=== PATIENT | female | born 1970 | race African-American/Black ===

== ENCOUNTER 2018-07-23 13:01 | Emergency (ER) | payer MEDICAID ==
[~2018-07-23] VITALS: Ht 162.6 cm; Wt 61.2 kg
[~2018-07-23 13:01] MED LIST: ATIVAN2 MG PO; CIPROFLOXACIN500 MG PO; COLACE100 MG PO; FLA500 PO; FLEXERIL10 MG PO; HCTZ/LISINOPRIL1 TA1 PO; HYDROCHLOROTH12.5 M2 PO; NAPROSYN500 MG PO; PRI20 PO; SIMVASTATIN40 M1 PO; TYLENOL WITH CO1 TA2 PO; VENTOLIN H0.09 MG/A1 INH; VITAMIN-D1000 IU PO
[2018-07-23 13:12] VITALS: Ht 162.6 cm; Wt 61.2 kg
[2018-07-23 14:45] LABS: PLATELET COUNT 236 x10^3mcL (130-400); RED CELL DISTRIBUTION WIDTH 14.6 % (11.5-14.5)
[2018-07-23 14:48] LABS: CALCIUM 9.3 mg/dL (8.5-10.1); CARBON DIOXIDE 28.1 mmol/L (21-32); CHLORIDE SERUM 97 mmol/L (98-107); CREATININE SERUM 0.9 mg/dL (0.6-1.0); GFR1 > 60 mL/min; GLUCOSE SERUM 119 mg/dL (74-106); POTASSIUM SERUM 4.2 mmol/L (3.5-5.1); SODIUM SERUM 133 mmol/L (136-145)
[2018-07-23 15:00] LABS: ALBUMIN 3.5 g/dL (3.4-5.0); ALKALINE PHOSPHATASE 199 U/L (46-116); ALT/SGPT 97 U/L (14-59); AST/SGOT 74 U/L (15-37); LIPASE 75 IU/L (73-393); MAGNESIUM 2.5 mg/dL (1.8-2.4); TOTAL PROTEIN, SERUM 8.2 g/dL (6.4-8.2); URIC ACID 5.9 mg/dL (2.6-6.0)
[2018-07-23 15:25] LABS: microscopic required? NO
[2018-07-23 15:27] LABS: BAND NEUTROPHIL 2 % (0-10); METAMYELOCTE 1 % (0-2); MONOCYTE 3 % (0-7); SEGMENTED NEUTROPHILS 79 % (37-75)
[2018-07-23 15:29] LABS: PLATELET MORPHOLOGY PLATELETS NORMAL; rbc morphology (normal/abnorm) NORMAL (NORMAL)
[2018-07-23 15:40] LABS: CHOLESTEROL 298 mg/dL (<200); HDL CHOLESTEROL 214 mg/dL (40-60)
[2018-07-23 15:42] LABS: urine erythrocyte NEGATIVE (NEGATIVE)
[2018-07-23 15:56] LABS: AMPHETAMINE QUAL UR NONE DETECTED (See below)
[2018-07-23 18:28] VITALS: BP 114/84
== END 2018-07-23 18:28 | disposition home or self-care (01) ==
LOC: ED 13:01
PROVIDERS: Emergency Medicine
DX: I10 Essential (primary) hypertension (principal); M17.12 Unilateral primary osteoarthritis, left knee; J45.909 Unspecified asthma, uncomplicated; M79.7 Fibromyalgia; E78.00 Pure hypercholesterolemia, unspecified; F41.9 Anxiety disorder, unspecified; Z98.890 Other specified postprocedural states; Z88.0 Allergy status to penicillin; Z88.5 Allergy status to narcotic agent; Z91.018 Allergy to other foods
CPT/HCPCS: 36415; J1100; J1885; Q0092